=== PATIENT | male | born 1960 | race Caucasian/White ===

== ENCOUNTER 2023-11-02 10:04 | Inpatient (IN) | payer MEDICARE, OTHER ==
[~2023-11-02] VITALS: Ht 162.6 cm; Wt 73.9 kg
[2023-11-02] MEDS: IV NS 0.9% 500 ML BAG IV ONE (10:36)
[2023-11-02 11:02] LABS: BASOPHILS # (AUTO) 0.1 K/uL (0.0-0.2); BASOPHILS % (AUTO) 1.1 % (0.0-2.0); EOSINOPHILS # (AUTO) 0.1 K/uL (0.0-0.7); EOSINOPHILS % (AUTO) 1.5 % (0.0-6.0); HEMATOCRIT 40 % (39-51); HEMOGLOBIN 13.5 g/dL (13.5-17.5); LYMPHOCYTES % (AUTO) 22.5 % (20.0-44.0); MEAN CORPUSCULAR HEMOGLOBIN 31 PG (26.0-33.0); MEAN CORPUSCULAR HGB CONC 34 g/dl (31.0-36.0); MEAN CORPUSCULAR VOLUME 91 fL (80-96); MONOCYTES # (AUTO) 0.4 K/uL (0.1-1.30); MONOCYTES % (AUTO) 4.2 % (2.0-12.0); NEUTROPHILS # (AUTO) 6.1 K/uL (1.8-8.9); NEUTROPHILS % (AUTO) 70.7 % (43.0-81.0); PLATELET COUNT (AUTO) 303 K/uL (150-450); RED BLOOD CELL COUNT(AUTO) 4.44 MIL/uL (4.5-6.0); RED CELL DISTRIBUTION WIDTH 14.3 % (11.5-15.0); WHITE BLOOD COUNT (AUTO) 8.7 K/uL (4.3-11.0)
[2023-11-02 11:15] LABS: ALANINE AMINOTRANSFERASE 11 U/L (12-78); ALBUMIN 3.2 g/dL (3.4-5.0); ALKALINE PHOSPHATASE 131 U/L (46-116); ASPARTATE AMINOTRANSFERASE < 5 U/L (15-37); BILIRUBIN,DIRECT 0.1 mg/dL (0.0-0.2); BILIRUBIN,TOTAL 0.5 mg/dL (0.2-1.0); CARBON DIOXIDE 23 mmol/L (21-32); CHLORIDE 106 mmol/L (98-107); CREATININE 1.4 mg/dL (0.6-1.3); GLUCOSE 196 mg/dL (74-106); POTASSIUM 3.5 mmol/L (3.5-5.1); SODIUM SERUM 143 mmol/L (136-145); TOTAL PROTEIN, SERUM 7.1 g/dL (6.4-8.2); UREA NITROGEN, BLOOD 12 mg/dL (7-18)
[2023-11-02 11:16] LABS: INR 0.98 (0.91-1.10); PARTIAL THROMBOPLASTIN TIME 26.2 SEC (24.3-34.3); PROTHROMBIN TIME 10.4 SECS (9.2-11.1)
[2023-11-02 11:20] LABS: LACTIC ACID 3.4 mmol/L (0.4-2.0)
[2023-11-02 11:26] LABS: CHOLESTEROL 273 mg/dL (<200); HDL CHOLESTEROL 45 mg/dL (40-60); LDL 188 mg/dL (0-99); TRIGLYCERIDES 151 mg/dL (30-150)
[2023-11-02] MEDS ORDERED: DEXTROSE 50%-WATER 50 ML DISP.SYRIN IV PRN (13:00)
[2023-11-02] MEDS ORDERED: SIMVASTATIN 40 MG TABLET PO SCH (13:00)
[2023-11-02] MEDS ORDERED: ASPIRIN 325 MG TABLET ONE (13:02)
[2023-11-02] MEDS: ASPIRIN 325 MG TABLET PO ONE (13:03)
[2023-11-02] MEDS ORDERED: IV NS 0.9% 250 ML IV ONE (13:35)
[2023-11-02] MEDS ORDERED: IOHEXOL-350 100 ML VIAL IV ONE (13:35)
[2023-11-02] MEDS ORDERED: CT SWABBABLE VALVE TRANS SET 1 EA INFUS.SET MC ONE (13:35)
[2023-11-02 14:30] VITALS: BP 167/96; TEMP 98.4; O2SAT 98
[2023-11-02 15:00] VITALS: BP 129/65; TEMP 98.1; O2SAT 95
[2023-11-02] MEDS: ENOXAPARIN SODIUM 40 MG/0.4 ML DISP.SYRIN SQ SCH (15:47)
[2023-11-02 16:00] VITALS: BP 153/81; TEMP 98.1; O2SAT 97
[2023-11-02 16:12] LABS: APPEARANCE,URINE CLEAR (CLEAR); BILIRUBIN,URINE NEGATIVE (NEGATIVE); BLOOD, URINE NEGATIVE Ery/uL (NEGATIVE); COLOR,URINE YELLOW (YELLOW); KETONES,URINE NEGATIVE (NEGATIVE); LEUKOCYTE ESTERASE ,URINE NEGATIVE (NEGATIVE); NITRITE, URINE NEGATIVE (NEGATIVE); PROTEIN,URINE NEGATIVE (NEGATIVE); UGLUCOSE NEGATIVE (NEGATIVE); UROBILINOGEN,URINE 0.2 EU/dL (0.2)
[2023-11-02 16:23] LABS: AMPHETAMINE, URINE NEGATIVE (NEGATIVE); BARBITURATE, URINE NEGATIVE (NEGATIVE); BENZODIAZEPINE, URINE NEGATIVE (NEGATIVE); CANNABINOID, URINE NEGATIVE (NEGATIVE); COCCAINE, URINE NEGATIVE (NEGATIVE); OPIATE, URINE NEGATIVE (NEGATIVE); PHENCYCLIDINE SCREEN,URINE NEGATIVE (NEGATIVE)
[2023-11-02 16:59] VITALS: BP 147/72; TEMP 98.3; O2SAT 98
[2023-11-02] MEDS: IV NS 0.9% 1,000 ML IV PRN (17:08)
[2023-11-02] MEDS: BLOOD SUGAR DIAGNOSTIC 1 EACH STRIP IN SCH (17:48)
[2023-11-02] MEDS: INSULIN REGULAR, HUMAN 100 UNIT/ML 3 ML VIAL SQ PRN (17:49)
[2023-11-02 20:10] VITALS: BP 154/79; TEMP 98.4; O2SAT 98
[2023-11-02] MEDS: SIMVASTATIN 20 MG TABLET PO SCH (21:41)
[2023-11-03] VITALS: BP 139/68; TEMP 97.5; O2SAT 98
[2023-11-03 04:00] VITALS: BP 141/72; TEMP 97.7; O2SAT 98
[2023-11-03 04:28] VITALS: BP 141/72; TEMP 97.7; O2SAT 98
[2023-11-03 06:45] LABS: INR 1.02 (0.91-1.10); PARTIAL THROMBOPLASTIN TIME 28.2 SEC (24.3-34.3); PROTHROMBIN TIME 10.8 SECS (9.2-11.1)
[2023-11-03 06:47] LABS: BASOPHILS # (AUTO) 0.1 K/uL (0.0-0.2); BASOPHILS % (AUTO) 0.9 % (0.0-2.0); EOSINOPHILS # (AUTO) 0.3 K/uL (0.0-0.7); EOSINOPHILS % (AUTO) 3.4 % (0.0-6.0); HEMATOCRIT 38 % (39-51); HEMOGLOBIN 12.9 g/dL (13.5-17.5); LYMPHOCYTES # (AUTO) 3.3 K/uL (0.8-4.8); MEAN CORPUSCULAR HEMOGLOBIN 31 PG (26.0-33.0); MEAN CORPUSCULAR HGB CONC 34 g/dl (31.0-36.0); MEAN CORPUSCULAR VOLUME 92 fL (80-96); MONOCYTES # (AUTO) 0.7 K/uL (0.1-1.30); MONOCYTES % (AUTO) 7.1 % (2.0-12.0); NEUTROPHILS # (AUTO) 5.6 K/uL (1.8-8.9); NEUTROPHILS % (AUTO) 55.6 % (43.0-81.0); PLATELET COUNT (AUTO) 253 K/uL (150-450); RED BLOOD CELL COUNT(AUTO) 4.11 MIL/uL (4.5-6.0); RED CELL DISTRIBUTION WIDTH 14.1 % (11.5-15.0); WHITE BLOOD COUNT (AUTO) 10.1 K/uL (4.3-11.0)
[2023-11-03 06:57] LABS: CALCIUM, SERUM 8.9 mg/dL (8.5-10.1); POTASSIUM 3.7 mmol/L (3.5-5.1)
[2023-11-03] MEDS: PANTOPRAZOLE 40 MG TABLET.DR PO SCH (07:38)
[2023-11-03 08:28] VITALS: BP 142/74; TEMP 97.9; O2SAT 97
[2023-11-03] MEDS: ASPIRIN EC 325 MG TABLET.DR PO SCH (08:45)
[2023-11-03] MEDS ORDERED: IOHEXOL-350 100 ML VIAL IV ONE (11:40)
[2023-11-03] MEDS ORDERED: SIMV-46 PO (11:52)
[2023-11-03] MEDS ORDERED: ASPI-1169 PO (11:52)
[2023-11-03 11:56] VITALS: BP 137/76; TEMP 97.5; O2SAT 98
[2023-11-03 16:01] VITALS: BP 143/86; TEMP 97.7; O2SAT 97
[2023-11-06] MEDS ORDERED: CLOP75TA15 PO (15:05)
== END 2023-11-03 20:00 | disposition home or self-care (01) | DRG 64 ==
LOC: ER 10:20 → TELE 13:09 → MED 11-03 17:48
PROVIDERS: ADMIT Nurse Practitioner Acute Care; ATTEND Student in an Organized Health Care Education/Training Program
DX: I63.9 Cerebral infarction, unspecified (principal); N17.0 Acute kidney failure with tubular necrosis; E87.20 Acidosis, unspecified; R20.0 Anesthesia of skin; F17.210 Nicotine dependence, cigarettes, uncomplicated; D64.9 Anemia, unspecified; E78.00 Pure hypercholesterolemia, unspecified; E86.9 Volume depletion, unspecified; M89.8X9 Other specified disorders of bone, unspecified site; R73.9 Hyperglycemia, unspecified; R29.700 NIHSS score 0
CPT/HCPCS: 36415; 70450-TC; 70496-TC; 70498-TC; 71045-TC; 80048-TC; 80061-TC; 80076-TC; 82962-TC; 83605-TC; 84443-TC; 84484-TC; 85025-TC; 85652-TC; 85730-TC; 86850-TC; 92526; 92611-TC; 93307-TC; 97110-TC; 97116-TC; 97530-TC; G0378; J1650; J1815; J7030; J7040; J7050; Q9967

== ENCOUNTER 2023-11-25 09:03 | Inpatient (IN) | payer MEDICARE, OTHER ==
[2023-11-25] VITALS (11 sets, daily range): BP systolic 109–154; BP diastolic 59–109; TEMP 98.3; O2SAT 96–99
[~2023-11-25] VITALS: Ht 162.6 cm; Wt 73.9 kg
[~2023-11-25 09:03] MED LIST: ANESTHESIA TRAY IN PYXIS 1 EA TRAY MC ONE; ASPI-1169 PO; CELLULOSE,OXIDIZED 1 EA PACK MC ONE; CELLULOSE,OXIDIZED 1 EACH EACH MC ONE; CELLULOSE,OXIDIZED 1 PKT EACH MC ONE; CLOP75TA15 PO; HEMOSTATIC MATRIX 8 ML 1 EACH PAD MC ONE; LIDOCAINE HCL/MPF 1% 30 ML VIAL IJ ONE; ROPIVACAINE HCL 0.5% 5 MG/ML 30ML VIAL ONE; SIMV-46 PO
[2023-11-25] MEDS ORDERED: GELATIN SPONGE,ABSORBABLE 1 EA SPONGE TP ONE (09:48)
[2023-11-25] MEDS ORDERED: ROCURONIUM BROMIDE 50 MG/5 ML ONE (10:40)
[2023-11-25] MEDS ORDERED: FENTANYL PF 250MCG/5ML AMPUL ONE (10:40)
[2023-11-25] MEDS: ASPIRIN 325 MG TABLET PO ONE (11:00)
[2023-11-25] MEDS ORDERED: NTG 50 MG/D5W250 ML BOTTL 250 ML IV PRN (11:00)
[2023-11-25] MEDS ORDERED: HEPARIN SODIUM, PORCINE 5000 UNITS/1 ML VIAL ONE (11:23)
[2023-11-25] MEDS ORDERED: SEVOFLURANE 250 ML BOTTLE IH ONE (12:57)
[2023-11-25] MEDS ORDERED: hydrALAZINE HCL IV 20 MG VIAL ONE (14:41)
[2023-11-25 15:07] LABS: BASOPHILS # (AUTO) 0.1 K/uL (0.0-0.2); BASOPHILS % (AUTO) 1.2 % (0.0-2.0); EOSINOPHILS # (AUTO) 0.1 K/uL (0.0-0.7); EOSINOPHILS % (AUTO) 0.8 % (0.0-6.0); HEMATOCRIT 37 % (39-51); HEMOGLOBIN 12.1 g/dL (13.5-17.5); LYMPHOCYTES % (AUTO) 9.9 % (20.0-44.0); MEAN CORPUSCULAR HEMOGLOBIN 31 PG (26.0-33.0); MEAN CORPUSCULAR HGB CONC 33 g/dl (31.0-36.0); MEAN CORPUSCULAR VOLUME 93 fL (80-96); MONOCYTES # (AUTO) 0.1 K/uL (0.1-1.30); MONOCYTES % (AUTO) 1.1 % (2.0-12.0); NEUTROPHILS # (AUTO) 8.8 K/uL (1.8-8.9); PLATELET COUNT (AUTO) 254 K/uL (150-450); RED BLOOD CELL COUNT(AUTO) 3.95 MIL/uL (4.5-6.0); RED CELL DISTRIBUTION WIDTH 14.3 % (11.5-15.0); WHITE BLOOD COUNT (AUTO) 10.1 K/uL (4.3-11.0)
[2023-11-25 15:17] LABS: CALCIUM, SERUM 8.5 mg/dL (8.5-10.1); CREATININE 1.2 mg/dL (0.6-1.3); MAGNESIUM 2.3 mg/dL (1.8-2.4); POTASSIUM 4.4 mmol/L (3.5-5.1)
[2023-11-25] MEDS ORDERED: HYDROCODONE/APAP 5/325MG TABLET PO PRN (15:30)
[2023-11-25] MEDS: IV NS 0.9% 1,000 ML IV PRN (16:56)
[2023-11-25] MEDS: CLONIDINE HCL 0.1 MG TABLET PO PRN (17:51)
[2023-11-25] MEDS: hydrALAZINE HCL 10 MG TABLET PO PRN (17:51)
[2023-11-25] MEDS: ANCEF 1 GM/50 ML D5W IV SCH (18:47)
[2023-11-25] MEDS: SIMVASTATIN 20 MG TABLET PO SCH (21:14)
[2023-11-25] MEDS: NICOTINE PATCH (21MG) 21 MG PATCH.TD24 TD SCH (22:09)
[2023-11-26] VITALS (21 sets, daily range): BP systolic 120–175; BP diastolic 62–100; TEMP 97.9–99.1; O2SAT 95–100
[2023-11-26] MEDS: CLOPIDOGREL BISULFATE 75 MG TABLET PO SCH (08:57)
[2023-11-26] MEDS: ASPIRIN EC 81 MG TABLET.DR PO SCH (08:57)
[2023-11-26] MEDS ORDERED: ENOXAPARIN SODIUM 40 MG/0.4 ML DISP.SYRIN SQ SCH (15:30)
[2023-11-26] MEDS: TAMSULOSIN 0.4 MG CAP.SR.24H PO SCH (21:10)
[2023-11-27] VITALS (7 sets, daily range): BP systolic 139–157; BP diastolic 70–83; TEMP 98.4–99.3; O2SAT 96–98
[2023-11-27] MEDS: CEPHALEXIN MONOHYDRATE 250 MG CAPSULE PO SCH (08:24)
[2023-11-27] MEDS: DOCUSATE SODIUM 100 MG CAPSULE PO SCH (08:25)
[2023-11-28 00:01] VITALS: BP 140/70; TEMP 98.6; O2SAT 97
[2023-11-28 04:00] VITALS: BP 139/71; TEMP 98.1; O2SAT 98
[2023-11-28 08:00] VITALS: BP 175/86; TEMP 98; O2SAT 97
[2023-11-28 12:00] VITALS: BP 144/72; TEMP 98.2; O2SAT 97
[2023-11-28 16:00] VITALS: BP 144/72; TEMP 98.1; O2SAT 97
[2023-11-28 20:00] VITALS: BP 149/74; TEMP 98.4; O2SAT 97
[2023-11-29] VITALS: BP 145/74; TEMP 98.2; O2SAT 95
[2023-11-29 04:00] VITALS: BP 142/76; TEMP 97.9; O2SAT 97
[2023-11-29 05:00] VITALS: BP 142/76; TEMP 97.9; O2SAT 97
[2023-11-29 08:00] VITALS: BP 112/74; TEMP 97.7; O2SAT 96
[2023-11-29] MEDS ORDERED: ACETAMINOPHEN 325 MG TABLET PO PRN (08:00)
[2023-11-29] MEDS ORDERED: MAGNESIUM HYDROXIDE 30 ML UDC PO PRN (08:00)
[2023-11-29] MEDS ORDERED: Z GUARD REMEDY 4 OZ OINT TP PRN (08:00)
[2023-11-29] MEDS ORDERED: MAG HYDROX/AL HYDROX/SIMETH 30 ML UDC PO PRN (08:00)
[2023-11-29] MEDS ORDERED: ONDANSETRON HCL/PF 4 MG/2 ML VIAL IVP PRN (08:00)
[2023-11-29 16:00] VITALS: BP 117/66; TEMP 98.4; O2SAT 97
[2023-11-29 20:00] VITALS: BP 126/72; TEMP 98.2; O2SAT 96
[2023-11-30 06:51] LABS: BASOPHILS # (AUTO) 0.1 K/uL (0.0-0.2); BASOPHILS % (AUTO) 1.1 % (0.0-2.0); EOSINOPHILS # (AUTO) 0.4 K/uL (0.0-0.7); EOSINOPHILS % (AUTO) 3.8 % (0.0-6.0); HEMATOCRIT 38 % (39-51); HEMOGLOBIN 12.5 g/dL (13.5-17.5); LYMPHOCYTES # (AUTO) 2.9 K/uL (0.8-4.8); LYMPHOCYTES % (AUTO) 29.1 % (20.0-44.0); MEAN CORPUSCULAR HEMOGLOBIN 30 PG (26.0-33.0); MEAN CORPUSCULAR HGB CONC 33 g/dl (31.0-36.0); MEAN CORPUSCULAR VOLUME 92 fL (80-96); MONOCYTES # (AUTO) 0.6 K/uL (0.1-1.30); MONOCYTES % (AUTO) 6.3 % (2.0-12.0); NEUTROPHILS # (AUTO) 5.9 K/uL (1.8-8.9); NEUTROPHILS % (AUTO) 59.7 % (43.0-81.0); PLATELET COUNT (AUTO) 298 K/uL (150-450); RED BLOOD CELL COUNT(AUTO) 4.16 MIL/uL (4.5-6.0); WHITE BLOOD COUNT (AUTO) 9.9 K/uL (4.3-11.0)
[2023-11-30 07:22] LABS: CALCIUM, SERUM 9.5 mg/dL (8.5-10.1); CREATININE 1.1 mg/dL (0.6-1.3); POTASSIUM 4.3 mmol/L (3.5-5.1)
[2023-11-30] MEDS: PANTOPRAZOLE 40 MG TABLET.DR PO SCH (07:36)
[2023-11-30 08:28] VITALS: BP 136/66; TEMP 98.1; O2SAT 97
[2023-11-30] MEDS ORDERED: TAMS-12 PO (08:45)
[2023-11-30 16:04] VITALS: BP 132/70; TEMP 98.6; O2SAT 97
== END 2023-11-30 18:15 | disposition home or self-care (01) | DRG 39 ==
LOC: SURGERY 09:03 → ICU 15:54 → TELE 11-26 18:44 → MED 11-29 08:28
PROVIDERS: ADMIT Nurse Practitioner Acute Care; ATTEND Nurse Practitioner Acute Care
PROC: 03CL0ZZ Extirpation of Matter from Left Internal Carotid Artery, Open Approach (ICD-10-PCS; principal; 2023-11-25)
PROC: 03UL0JZ Supplement Left Internal Carotid Artery with Synthetic Substitute, Open Approach (ICD-10-PCS; 2023-11-25)
PROC: 0HB4XZX Excision of Neck Skin, External Approach, Diagnostic (ICD-10-PCS; 2023-11-25)
DX: I65.22 Occlusion and stenosis of left carotid artery (principal); E78.00 Pure hypercholesterolemia, unspecified; L72.0 Epidermal cyst; F17.210 Nicotine dependence, cigarettes, uncomplicated; N40.1 Benign prostatic hyperplasia with lower urinary tract symptoms; R33.8 Other retention of urine
CPT/HCPCS: 36415; 80048-TC; 83735-TC; 85025-TC; 87081-TC; 88304-TC; 88311-TC; 97112-TC; 97116-TC; 97530-TC; A4223; C1751; C1781; G0378; J0360; J0461; J0690; J1644; J2704; J2795; J3010; J3490; J7030; J7060

== ENCOUNTER 2024-01-18 11:04 | Emergency (ER) | payer OTHER, MEDICARE ==
[~2024-01-18] VITALS: Ht 162.6 cm; Wt 72.6 kg
[~2024-01-18 11:04] MED LIST changes: -ANESTHESIA TRAY IN PYXIS 1 EA TRAY MC ONE; -CELLULOSE,OXIDIZED 1 EA PACK MC ONE; -CELLULOSE,OXIDIZED 1 EACH EACH MC ONE; -CELLULOSE,OXIDIZED 1 PKT EACH MC ONE; -HEMOSTATIC MATRIX 8 ML 1 EACH PAD MC ONE; -LIDOCAINE HCL/MPF 1% 30 ML VIAL IJ ONE; -ROPIVACAINE HCL 0.5% 5 MG/ML 30ML VIAL ONE; +TAMS-12 PO
[2024-01-18 12:56] VITALS: BP 126/68; TEMP 98.3; O2SAT 98
== END 2024-01-18 12:57 | disposition home or self-care (01) ==
LOC: ER 11:26
DX: R07.89 Other chest pain (principal); M54.2 Cervicalgia; R06.02 Shortness of breath; F17.200 Nicotine dependence, unspecified, uncomplicated; Z86.73 Personal history of transient ischemic attack (TIA), and cerebral infarction without residual deficits; Z79.82 Long term (current) use of aspirin; V43.52XA Car driver injured in collision with other type car in traffic accident, initial encounter; Y93.89 Activity, other specified; Y92.488 Other paved roadways as the place of occurrence of the external cause; Y99.8 Other external cause status
CPT/HCPCS: 71045-TC; 72050-TC

== ENCOUNTER 2024-10-25 13:10 | Emergency (ER) | payer MEDICARE, OTHER ==
[~2024-10-25] VITALS: Ht 165.1 cm; Wt 71.7 kg
[2024-10-25 15:27] LABS: PLATELET COUNT (AUTO) 310 K/uL (150-450); RED BLOOD CELL COUNT(AUTO) 4.73 MIL/uL (4.5-6.0); RED CELL DISTRIBUTION WIDTH 14.6 % (11.5-15.0); WHITE BLOOD COUNT (AUTO) 8.4 K/uL (4.3-11.0)
[2024-10-25 15:40] LABS: CALCIUM, SERUM 9.3 mg/dL (8.5-10.1); CREATININE 1.2 mg/dL (0.6-1.3); SODIUM SERUM 138.0 mmol/L (136-145); UREA NITROGEN, BLOOD 16.0 mg/dL (7-18)
[2024-10-25 15:42] LABS: INR 1.01 (0.91-1.10)
[2024-10-25] MEDS ORDERED: PSYL822P6 PO (15:48)
[2024-10-25] MEDS ORDERED: HYDR25SU33 RC (15:48)
[2024-10-25] MEDS ORDERED: DIBU30OI RC (15:48)
[2024-10-25] MEDS ORDERED: ACETAMINOPHEN 325 MG TABLET ONE (15:54)
[2024-10-25] MEDS: ACETAMINOPHEN 650 MG/20.3 ML UDC PO ONE (15:59)
[2024-10-25 16:01] VITALS: BP 137/80; TEMP 98.5; O2SAT 99
== END 2024-10-25 16:02 | disposition home or self-care (01) ==
LOC: ER 13:17
DX: K64.4 Residual hemorrhoidal skin tags (principal); F17.200 Nicotine dependence, unspecified, uncomplicated; Z79.02 Long term (current) use of antithrombotics/antiplatelets; Z79.82 Long term (current) use of aspirin; Z86.73 Personal history of transient ischemic attack (TIA), and cerebral infarction without residual deficits; Z87.19 Personal history of other diseases of the digestive system; Z79.899 Other long term (current) drug therapy; Z86.2 Personal history of diseases of the blood and blood-forming organs and certain disorders involving the immune mechanism
CPT/HCPCS: 36415; 80048-TC; 85025-TC; 85730-TC